=== PATIENT | female | born 2005 | race Caucasian/White ===

== ENCOUNTER 2024-08-10 16:23 | Emergency (ER) | payer OTHER ==
[2024-08-10] MEDS ORDERED: Ibuprofen 200 MG TAB ONE (18:15)
[2024-08-10] MEDS ORDERED: Acetaminophen 325 MG TAB ONE (18:16)
[2024-08-10] MEDS ORDERED: Metoclopramide HCl 10 MG TAB ONE (18:16)
[2024-08-10] MEDS ORDERED: diphenhydrAMINE 25 MG CAP ONE (18:16)
== END 2024-08-10 18:34 | disposition home or self-care (01) ==
LOC: ERS 16:23
DX: S06.9X1A Unspecified intracranial injury with loss of consciousness of 30 minutes or less, initial encounter (principal); R11.0 Nausea; Y04.8XXA Assault by other bodily force, initial encounter; W18.30XA Fall on same level, unspecified, initial encounter; W22.8XXA Striking against or struck by other objects, initial encounter
CPT/HCPCS: 70450